=== PATIENT | female | born 1950 | race Caucasian/White ===

== ENCOUNTER 2019-11-03 13:56 | Emergency (ER) | payer MEDICARE, OTHER ==
--- NOTE | 2019-11-03 15:42 | EDM.PDOC ---
ED HPI GENERAL MEDICAL PROBLEM - General Chief Complaint: General Stated Complaint: COVID SYMPTOM Time Seen by Provider: 11/03/19 15:15 Source of Information: Reports: Patient History Limitations: Reports: No Limitations - History of Present Illness INITIAL COMMENTS - FREE TEXT/NARRATIVE: patient c/o abdominal pain, N/V/D, fever, chills x 1 month. Started to have vaginal bleeding and discharge 3 days ago, bleeding has stopped, but brown discharge continues. COVID negative today. Reports decreased appetite. PMH hysterectomu 20 + years ago Location: Reports: Abdomen Associated Symptoms: Reports: Fever/Chills, Loss of Appetite, Nausea/Vomiting Treatments H[employer]AND[employer]: Reports: NSAIDS - Related Data Allergies Allergy/AdvReac Type Severity Reaction Status Date / Time procaine [From Novocain] Allergy Other Verified 11/03/19 15:57 Home Meds: Home Meds Ciprofloxacin [Ciprofloxacin HCl] 500 mg PO BID 10 Days #20 tab 11/03/19 [Rx] metroNIDAZOLE [Flagyl] 500 mg PO Q8H 10 Days #30 tab 11/03/19 [Rx] Past Medical History - Past Health History Medical/Surgical History: Denies Medical/Surgical History [employer] History: Reports: Dysfunctional Uterine Bleeding Musculoskeletal History: Reports: None Social & Family History - Family History Family Medical History: Noncontributory GI: Reports: Diverticulitis - Tobacco Use Smoking Status *Q: Former Smoker Used Tobacco, but Quit: Yes Month/Year Tobacco Last Used: - Caffeine Use Caffeine Use: Reports: Coffee - Alcohol Use Days Per Week of Alcohol Use: 1 Number of Drinks Per Day: 1 Total Drinks Per Week: 1 - Recreational Drug Use Recreational Drug Use: No ED ROS GENERAL - Review of Systems Review Of Systems: See Below Constitutional: Reports: No Symptoms HEENT: Reports: No Symptoms Respiratory: Reports: No Symptoms Cardiovascular: Reports: No Symptoms Endocrine: Reports: No Symptoms GI/Abdominal: Reports: Abdominal Pain, Diarrhea, Decreased Appetite, Nausea. Denies: Bloody Stool, Constipation, Melena, Mucous in Stool, Stool Incontinence : Reports: Discharge. Denies: Dysuria, Flank Pain Musculoskeletal: Reports: No Symptoms Skin: Reports: No Symptoms Neurological: Reports: No Symptoms Psychiatric: Reports: No Symptoms ED EXAM, GENERAL - Physical Exam Exam: See Below Exam Limited By: No Limitations General Appearance: Alert, No Apparent Distress Throat/Mouth: Normal Inspection, Normal Lips, Normal Oropharynx, Normal Voice Head: Atraumatic Neck: Normal Inspection, Full Range of Motion Respiratory/Chest: No Respiratory Distress, Lungs Clear, Normal Breath Sounds Cardiovascular: Normal Peripheral Pulses, No Edema, No JVD, No Murmur, Tachycardia Peripheral Pulses: 3+: Radial (L), Radial (R), Dorsalis Pedis (L), Dorsalis Pedis (R) GI/Abdominal: Normal Bowel Sounds, Soft, Tender Back Exam: Normal Inspection, Full Range of Motion. No: CVA Tenderness (R), CVA Tenderness (L) Extremities: Normal Inspection, Normal Range of Motion Neurological: Alert, Oriented, CN II-XII Intact, Normal Cognition, Normal Gait, No Motor/Sensory Deficits Psychiatric: Normal Affect, Normal Mood Skin Exam: Warm, Dry, Intact Lymphatic: No Adenopathy Course - Vital Signs Last Recorded V/S: Last Vital Signs Temp 98.4 F 11/03/19 15:01 Pulse 94 11/03/19 15:01 Resp 18 11/03/19 15:01 BP 124/65 11/03/19 15:01 Pulse Ox 100 11/03/19 14:58 - Orders/Labs/Meds Orders: Active Orders 24 hr Category Date Time Status Abdomen Pelvis w Cont [CT] Stat Exams 11/03/19 16:16 Ordered CULTURE URINE [RM] Stat Lab 11/03/19 15:34 Received STOOL CULTURE Stat Lab 11/03/19 15:23 Ordered WHITE BLOOD CELLS (WBC), STOOL Stat Lab 11/03/19 15:23 Ordered Iopamidol [Isovue-300 (61%)] Med 11/03/19 16:30 Active 100 ml IV . DIRECTED Medication Orders Iopamidol (Isovue-300 (61%)) 100 ml IV . DIRECTED NATALIIA Labs: Laboratory Tests 11/03/19 11/03/19 11/03/19 Range/Units 14:15 15:23 15:23 WBC 16.2 H D (4.0-11.0) K/uL RBC 4.28 (3.80-5.80) M/uL Hgb 11.6 (11.5-16.5) g/dL Hct 35.6 L (37.0-47.0) % MCV 83 (76-96) fL MCH 27.1 (27.0-32.0) pg MCHC 32.6 (31.0-35.0) g/dL RDW 14.2 (11.0-16.0) % Plt Count 517 H D (150-500) K/uL MPV 9.4 (6.0-10.0) fL Neut % (Auto) 81.7 H (45.0-70.0) % Lymph % (Auto) 8.1 L (20.0-40.0) % [place] % (Auto) 9.4 (3.0-10.0) % Eos % (Auto) 0.6 L (1.0-5.0) % Baso % (Auto) 0.2 (0.0-0.5) % Neut # (Auto) 13.23 H (2.00-7.50) K/uL Lymph # (Auto) 1.32 L (1.50-4.00) K/uL [place] # (Auto) 1.53 H (0.20-0.80) K/uL Eos # (Auto) 0.09 (0.04-0.40) K/uL Baso # (Auto) 0.03 (0.02-0.10) K/uL Sodium 135 L (136-145) mmol/L Potassium 3.7 (3.5-5.1) mmol/L Chloride 99 (98-107) mmol/L Carbon Dioxide 25.4 (21.0-32.0) mmol/L Anion Gap 14.3 (5.0-15.0) mmol/L BUN 13 (8-26) mg/dL Creatinine 0.85 (0.55-1.02) mg/dL Est Cr Clr Drug Dosing 50.10 mL/min Estimated GFR (MDRD) > 60 (>60) MLS/MIN BUN/Creatinine Ratio 15.3 (6-25) Glucose 133 H D (74-100) mg/dL Calcium 9.0 (8.5-10.1) mg/dL Total Bilirubin 0.4 (0.0-1.0) mg/dL AST 26 (15-37) U/L ALT 33 (12-78) U/L Alkaline Phosphatase 189 H (46-116) U/L Total Protein 7.3 (6.4-8.2) g/dL Albumin 3.0 L (3.4-5.0) g/dL Globulin 4.3 H (2.2-4.2) g/dL Albumin/Globulin Ratio 0.7 L (0.8-2.0) Urine Color Urine Appearance (CLEAR) Urine pH (5.0-8.0) Ur Specific [place] (1.003-1.030) Urine Protein (NEGATIVE) mg/dL Urine Glucose (UA) (NEGATIVE) mg/dL Urine Ketones (NEGATIVE) mg/dL Urine Occult Blood (NEGATIVE) Urine Nitrite (NEGATIVE) Urine Bilirubin (NEGATIVE) Urine Urobilinogen (0.2-1.0) E.U./dL Ur Leukocyte Esterase (NEGATIVE) Urine RBC Urine WBC /HPF Urine WBC Clumps /HPF Ur Epithelial Cells /HPF Urine Bacteria /HPF SARS CoV-2 RNA Rapid MEGHA Negative 11/03/19 Range/Units 15:34 WBC (4.0-11.0) K/uL RBC (3.80-5.80) M/uL Hgb (11.5-16.5) g/dL Hct (37.0-47.0) % MCV (76-96) fL MCH (27.0-32.0) pg MCHC (31.0-35.0) g/dL RDW (11.0-16.0) % Plt Count (150-500) K/uL MPV (6.0-10.0) fL Neut % (Auto) (45.0-70.0) % Lymph % (Auto) (20.0-40.0) % [place] % (Auto) (3.0-10.0) % Eos % (Auto) (1.0-5.0) % Baso % (Auto) (0.0-0.5) % Neut # (Auto) (2.00-7.50) K/uL Lymph # (Auto) (1.50-4.00) K/uL [place] # (Auto) (0.20-0.80) K/uL Eos # (Auto) (0.04-0.40) K/uL Baso # (Auto) (0.02-0.10) K/uL Sodium (136-145) mmol/L Potassium (3.5-5.1) mmol/L Chloride (98-107) mmol/L Carbon Dioxide (21.0-32.0) mmol/L Anion Gap (5.0-15.0) mmol/L BUN (8-26) mg/dL Creatinine (0.55-1.02) mg/dL Est Cr Clr Drug Dosing mL/min Estimated GFR (MDRD) (>60) MLS/MIN BUN/Creatinine Ratio (6-25) Glucose (74-100) mg/dL Calcium (8.5-10.1) mg/dL Total Bilirubin (0.0-1.0) mg/dL AST (15-37) U/L ALT (12-78) U/L Alkaline Phosphatase (46-116) U/L Total Protein (6.4-8.2) g/dL Albumin (3.4-5.0) g/dL Globulin (2.2-4.2) g/dL Albumin/Globulin Ratio (0.8-2.0) Urine Color Yellow Urine Appearance Clear (CLEAR) Urine pH 6.0 (5.0-8.0) Ur Specific [place] 1.010 (1.003-1.030) Urine Protein Negative (NEGATIVE) mg/dL Urine Glucose (UA) Negative (NEGATIVE) mg/dL Urine Ketones Negative (NEGATIVE) mg/dL Urine Occult Blood Negative (NEGATIVE) Urine Nitrite Negative (NEGATIVE) Urine Bilirubin Negative (NEGATIVE) Urine Urobilinogen 0.2 (0.2-1.0) E.U./dL Ur Leukocyte Esterase Small H (NEGATIVE) Urine RBC Not Reportable Urine WBC 5-10 H /HPF Urine WBC Clumps Rare /HPF Ur Epithelial Cells Few /HPF Urine Bacteria Few /HPF SARS CoV-2 RNA Rapid MEGHA Meds: Medications Generic Name Dose Route Start Last Admin Trade Name Freq PRN Reason Stop Dose Admin Iopamidol 100 ml 11/03/19 16:30 Isovue-300 (61%) IV . DIRECTED NATALIIA Discontinued Medications Generic Name Dose Route Start Last Admin Trade Name Freq PRN Reason Stop Dose Admin Acetaminophen Confirm 11/03/19 16:29 11/03/19 16:23 Tylenol Administered 11/03/19 16:30 Not Given Dose 650 mg .ROUTE .STK-MED ONE Acetaminophen 650 mg 11/03/19 16:35 11/03/19 16:25 Tylenol PO 11/03/19 16:36 650 mg NOW ONE Administration Sodium Chloride 50 ml 11/03/19 16:30 Normal Saline FLUSH 11/03/19 16:31 ONETIME ONE Departure - Departure Time of Disposition: 18:05 Disposition: Home, Self-Care 01 Clinical Impression: Diverticulitis, Hiatal hernia UTI (urinary tract infection) Qualifiers: Urinary tract infection type: acute cystitis Hematuria presence: without hematuria Qualified Code(s): N30.00 - Acute cystitis without hematuria - Discharge Information *PRESCRIPTION DRUG MONITORING PROGRAM REVIEWED*: Not Applicable *COPY OF PRESCRIPTION DRUG MONITORING REPORT IN PATIENT MAGALY: Not Applicable Prescriptions: Ciprofloxacin [Ciprofloxacin HCl] 500 mg PO BID 10 Days #20 tab metroNIDAZOLE [Flagyl] 500 mg PO Q8H 10 Days #30 tab Instructions: Diverticulitis, [id number], Hernia, Adult, [id number], Urinary Tract Infection, Adult, [id number] Referrals: PCP,None [Primary Care Provider] - Forms: ED Department Discharge Additional Instructions: follow up with and OB MD next week for continued vaginal discharge. Will treat today with diflucan. Take antibiotics as prescribed. No alcohol while on antibiotics. Take yeast infection medication as prescribed. You will want to schedule a colonoscopy after you have finished the antibiotics. Return to ED for any increased or new concerning symptoms. First dose of flagyl and cipro given in ED, be sure to fill the RX's tomorrow AM. You may take the norco 1 tablet every 6 hours as needed for pain, no alcohol or driving. Incidential findings of hiatial hernia, possible intramural abscess, right ureter dilation discussed with patient. Sepsis Event Note (ED) - Evaluation Sepsis Screening Result: No Definite Risk - Focused Exam Vital Signs: Vital Signs Temp Pulse Resp BP Pulse Ox 11/03/19 15:01 98.4 F 94 18 124/65 11/03/19 14:58 98.4 F 94 18 124/65 100 - My Orders Last 24 Hours: My Active Orders 11/03/19 15:23 STOOL CULTURE Stat WHITE BLOOD CELLS (WBC), STOOL Stat 11/03/19 15:34 CULTURE URINE [RM] Stat 11/03/19 16:16 Abdomen Pelvis w Cont [CT] Stat 11/03/19 16:30 Iopamidol [Isovue-300 (61%)] 100 ml IV . DIRECTED - Assessment/Plan Last 24 Hours: My Active Orders 11/03/19 15:23 STOOL CULTURE Stat WHITE BLOOD CELLS (WBC), STOOL Stat 11/03/19 15:34 CULTURE URINE [RM] Stat 11/03/19 16:16 Abdomen Pelvis w Cont [CT] Stat 11/03/19 16:30 Iopamidol [Isovue-300 (61%)] 100 ml IV . DIRECTED Plan: Patient will follow up with and OB MD for continued vaginal discharge. Will treat discharge with diflucan. Follow up with your OB/MD next week or sooner as needed. Cipro and flagyl antibiotics as prescribed. No alcohol while on antibiotics. Take yeast infection medication as prescribed. [place] as needed for pain, no alcohol or driving while taking narcotics. DDX: COVID, SBO, appy We discussed admission vs. DC home, patient would like to go home, she will return if symptoms persist, increase or new concerning symptoms develop. Incidential findings of hiatial hernia, possible intramural abscess, right ureter dilation discussed with patient. Importance of colonoscopy after antibiotics are finished was stressed. Patient verbalized understanding, all questions were answered prior to DC.
[2019-11-03] MEDS ORDERED: Acetaminophen 325 MG Tab ONE (16:29)
[2019-11-03] MEDS ORDERED: Sodium Chloride 0.9% 50 ML SDV FLUSH ONE (16:30)
[2019-11-03] MEDS ORDERED: Iopamidol 612 MG/ML 100 ML Bottle IV SCH (16:30)
[2019-11-03] MEDS ORDERED: Acetaminophen 325 MG Tab PO ONE (16:35)
[2019-11-03] MEDS ORDERED: Fluconazole 150 MG Tab PO ONE (17:49)
[2019-11-03] MEDS ORDERED: metroNIDAZOLE 500 MG Tab PO ONE (17:50)
[2019-11-03] MEDS ORDERED: Ciprofloxacin 500 MG Tab PO ONE (17:51)
[2019-11-03] MEDS ORDERED: Fluconazole 150 MG Tab ONE (17:58)
[2019-11-03] MEDS ORDERED: Acetaminophen/HYDROcodone 325-5 MG Tab ONE (18:00)
--- NOTE | 2019-11-06 10:21 | CT ---
Date of Service: 11/03/19 Clinical Data: abdominal pain, vaginal bleeding/discharge ENHANCED ABDOMEN AND PELVIC CT: Multislice acquisition through the abdomen and pelvis with IV and oral contrast was performed. No priors. The lung bases are clear. Thee is a moderate-sized hiatal hernia. The heart size is normal. There is mild diffuse fatty infiltration of the liver. There is increased fatty infiltration adjacent to the falciform ligament. The liver otherwise appears normal. The gallbladder is contracted. Question of gallstones within the gallbladder. Gallbladder. ultrasound is recommended. The spleen appears normal. The pancreas appears normal. The right and left adrenals appear normal. The right and left kidneys enhance symmetrically. There are small low-density lesions in both kidneys most likely representing cysts. No hydronephrosis or hydroureter. The bladder is partially fluid filled. There is diffuse bladder wall thickening. This is probably related to nondistention. Cystitis should be considered. No evidence of appendicitis. There is diverticulosis of the descending and sigmoid colon. There is pericolonic fat stranding involving the proximal and mid sigmoid colon. There is also significant mural thickening throughout this segment of the sigmoid colon. These findings are consistent with diverticulitis. There are also very small gas collections adjacent to this segment of the colon consistent with micro-perforations. No evidence of a diverticular abscess. There is mural thickening of adjacent loops of small bowel most likely related to inflammation from the diverticulitis. There is a low-density collection located within the wall of the sigmoid colon which may be a small intramural abscess. No evidence of an extraluminal diverticular abscess. IMPRESSION: Findings consistent with sigmoid diverticulitis with small extraluminal gas collection consistent with micro-perforation. There is also mural thickening of adjacent loops of small most likely related to the diverticulitis and inflammation. There is mural thickening throughout this segment of the sigmoid colon most likely related to diverticular disease. Colonoscopy after treatment is, however, recommended. [id number] [facility]
== END 2019-11-03 18:05 | disposition home or self-care (01) ==
LOC: LB.ED 13:56
DX: K57.32 Diverticulitis of large intestine without perforation or abscess without bleeding (principal); K44.9 Diaphragmatic hernia without obstruction or gangrene; N30.00 Acute cystitis without hematuria; R00.0 Tachycardia, unspecified; Z88.4 Allergy status to anesthetic agent; Z87.891 Personal history of nicotine dependence; Z20.828 Contact with and (suspected) exposure to other viral communicable diseases
CPT/HCPCS: 36415; 74177; 80053; 81001; 85025; 87045; 87046; 87086; 87338; 87427; 99284-25; A9270-GY; U0002